=== PATIENT | female | born 1965 | race Two or more races ===

== ENCOUNTER 2023-01-09 09:25 | Inpatient (IN) | payer MEDICAID, OTHER ==
[~2023-01-09] VITALS: Ht 304.8 cm; Wt 58.7 kg
[2023-01-09 10:16] LABS: Basophils # (auto) 0.1 10 ^3/uL (0-0.2); Basophils % (auto) 1.7 % (0.0-2.0); Eosinophils # (auto) 0.1 10 ^3/uL (0-0.8); Eosinophils % (auto) 1.8 % (0.0-7.0); Hematocrit 36.3 % (36.0-46.0); Hemoglobin 11.6 g/dL (12.2-16.2); Lymphocytes % (auto) 32.9 % (10.0-50.0); Mean Corpuscular Hemoglobin 29.8 pg (28.0-32.0); Mean Corpuscular Hgb Conc. 31.9 g/dL (32.0-36.0); Mean Corpuscular Volume 93.4 fL (80.0-100.0); Monocytes # (auto) 0.2 10 ^3/uL (0-1.3); Monocytes % (auto) 7.7 % (0.0-12.0); Neutrophils # (auto) 1.7 10 ^3/uL (1.6-8.6); Neutrophils % (auto) 55.9 % (37.0-80.0); Nucleated Red Blood Cells % 0.2 %; Red Blood Cells 3.89 10^6/uL (4.0-5.20); Red Cell Distribution Width 13.6 % (11.8-14.3); White Blood Cell 3.1 10^3/uL (4.4-10.8)
[2023-01-09 10:59] LABS: Albumin 3.9 g/dL (3.4-5.0); BUN/Creatinine Ratio 14.3 (10.0-20.0)
[2023-01-09 11:01] LABS: Bilirubin, Total 0.4 mg/dL (0.2-1.0)
[2023-01-09] MEDS ORDERED: LORazepam 2MG/ML-1ML VIAL ONE (12:26)
[2023-01-09] MEDS ORDERED: LORazepam 2MG/ML-1ML VIAL IV ONE (12:30)
[2023-01-09] MEDS ORDERED: ONDANSETRON HCL 4 MG/2 ML VIAL IV PRN (13:15)
[2023-01-09] MEDS ORDERED: SODIUM CHLORIDE 0.9% 1,000 ML IV ONE (13:15)
[2023-01-09] MEDS ORDERED: DOCUSATE SOD 100 MG CAP PO PRN (13:15)
[2023-01-09] MEDS: SODIUM CHLORIDE 0.9% 1,000 ML IV SCH ×2 (14:09→22:08)
[2023-01-09] MEDS ORDERED: LORazepam 2MG/ML-1ML VIAL IV PRN (18:00)
[2023-01-09 22:00] VITALS: BP 108/54
[2023-01-09 22:10] VITALS: BP 108/54
[2023-01-10] MEDS: SODIUM CHLORIDE 0.9% 1,000 ML IV SCH ×2 (01:10→13:46)
[2023-01-10 05:00] VITALS: BP 98/77
[2023-01-10 05:25] LABS: Basophils # (auto) 0.1 10 ^3/uL (0-0.2); Basophils % (auto) 1.7 % (0.0-2.0); Eosinophils # (auto) 0.1 10 ^3/uL (0-0.8); Eosinophils % (auto) 2.6 % (0.0-7.0); Hematocrit 30.6 % (36.0-46.0); Hemoglobin 10.1 g/dL (12.2-16.2); Lymphocytes # (auto) 1.4 10 ^3/uL (0.4-5.4); Lymphocytes % (auto) 40.6 % (10.0-50.0); Mean Corpuscular Hemoglobin 31.1 pg (28.0-32.0); Mean Corpuscular Hgb Conc. 32.9 g/dL (32.0-36.0); Mean Corpuscular Volume 94.4 fL (80.0-100.0); Monocytes # (auto) 0.3 10 ^3/uL (0-1.3); Monocytes % (auto) 8.8 % (0.0-12.0); Neutrophils # (auto) 1.6 10 ^3/uL (1.6-8.6); Neutrophils % (auto) 46.3 % (37.0-80.0); Nucleated Red Blood Cells % 0.1 %; Red Blood Cells 3.24 10^6/uL (4.0-5.20); Red Cell Distribution Width 13.3 % (11.8-14.3); White Blood Cell 3.4 10^3/uL (4.4-10.8)
[2023-01-10 05:39] LABS: Potassium 3.4 mmol/L (3.5-5.1)
[2023-01-10 05:50] LABS: Albumin 2.9 g/dL (3.4-5.0); BUN/Creatinine Ratio 13.8 (10.0-20.0); Bilirubin, Total 0.5 mg/dL (0.2-1.0); Calcium 8.4 mg/dL (8.5-10.1); Total Protein 5.9 g/dL (6.4-8.2)
[2023-01-10 09:00] VITALS: BP 109/60
[2023-01-10] MEDS ORDERED: LORazepam 2MG/ML-1ML VIAL IV PRN (12:45)
[2023-01-10 13:00] VITALS: BP 99/54
[2023-01-10 17:00] VITALS: BP 99/56
[2023-01-10] MEDS ORDERED: POTASSIUM EFFERVESENT TAB 25 MEQ GT ONE (17:15)
[2023-01-10 22:00] VITALS: BP 105/41
[2023-01-11 05:00] VITALS: BP 97/54
[2023-01-11 05:47] LABS: Calcium 8.4 mg/dL (8.5-10.1); Potassium 3.5 mmol/L (3.5-5.1)
[2023-01-11 05:49] LABS: BUN/Creatinine Ratio 21.9 (10.0-20.0); Basophils # (auto) 0.1 10 ^3/uL (0-0.2); Basophils % (auto) 1.3 % (0.0-2.0); Eosinophils # (auto) 0.1 10 ^3/uL (0-0.8); Eosinophils % (auto) 2.1 % (0.0-7.0); Hematocrit 30.3 % (36.0-46.0); Lymphocytes # (auto) 1.6 10 ^3/uL (0.4-5.4); Lymphocytes % (auto) 39.7 % (10.0-50.0); Mean Corpuscular Hemoglobin 30.8 pg (28.0-32.0); Mean Corpuscular Hgb Conc. 32.9 g/dL (32.0-36.0); Mean Corpuscular Volume 93.7 fL (80.0-100.0); Monocytes # (auto) 0.3 10 ^3/uL (0-1.3); Monocytes % (auto) 7.9 % (0.0-12.0); Nucleated Red Blood Cells % 0.1 %; Red Blood Cells 3.24 10^6/uL (4.0-5.20); Red Cell Distribution Width 13.6 % (11.8-14.3)
[2023-01-11 09:00] VITALS: BP 94/43
[2023-01-11] MEDS: SODIUM CHLORIDE 0.9% 1,000 ML IV SCH (12:32)
[2023-01-11 13:00] VITALS: BP 99/51
[2023-01-11] MEDS ORDERED: KEP500T PO (13:56)
[2023-01-11 14:13] VITALS: BP 99/51
== END 2023-01-11 14:58 | disposition home or self-care (01) | DRG 53 ==
LOC: EDBD 09:25 → ER 09:25 → TELE 13:13 → TELE-EAST 21:50
PROVIDERS: ADMIT Nurse Practitioner Family; ATTEND Internal Medicine
DX: G40.909 Epilepsy, unspecified, not intractable, without status epilepticus (principal); G92.8 Other toxic encephalopathy; D61.818 Other pancytopenia; E87.6 Hypokalemia; Z91.148 Patient's other noncompliance with medication regimen for other reason; F17.200 Nicotine dependence, unspecified, uncomplicated; Z71.6 Tobacco abuse counseling
CPT/HCPCS: 36415; 70450; 71045; 80048; 80053; 80156; 80185; 80320; 84484; 85025; 86592; 93005; 96365; 96375; G0378; J7060